=== PATIENT | female | born 1950 | race Caucasian/White ===

== ENCOUNTER 2018-07-12 14:00 | Outpatient (CLI) | payer MEDICARE, OTHER ==
[2018-07-12] MEDS ORDERED: Gadobenate Dimeglumine 529 MG/1 ML (20ML VIAL) ONE (15:17)
--- NOTE | 2018-07-12 15:38 | MRI ---
MR of the abdomen with and without IV contrast INDICATION: Bile duct enlargement TECHNIQUE: Multiplanar multisequence MR images were obtained of the abdomen with and without contrast utilizing MRCP protocol. Contrast: 14 cc of MultiHance was utilized. COMPARISON: None FINDINGS: Liver: No focal hepatic lesion is evident. No area of abnormal enhancement is demonstrated. There is signal dropout on in and out of phase images consistent with changes of fatty infiltration. Gallbladder and biliary system: No gallstones are present. The common bile but measures 6.9 mm which is within normal limits for age. No intrahepatic biliary ductal dilatation is noted. No intraluminal stone is noted. No visible mass is seen near the region of the ampulla. Pancreas: Visualized pancreas is normal-appearing. The main pancreatic duct is normal-appearing. No p eripancreatic edema is noted. Adrenal glands: The adrenal glands are normal appearing. Kidneys: Normal appearing. Spleen: Normal in size and signal intensity. Retroperitoneum: No free fluid or lymphadenopathy is evident. Osseous structures: Bone marrow signal intensity is within normal limits. IMPRESSION: 1. No intrahepatic or extra hepatic biliary ductal dilatation. No intraluminal lesion or stone is dem onstrated. 2. Fatty liver
== END 2018-07-12 14:01 | disposition home or self-care (01) ==
LOC: BICMRI 14:00
PROVIDERS: ATTEND Internal Medicine Gastroenterology
DX: R10.9 Unspecified abdominal pain (principal); R93.89 Abnormal findings on diagnostic imaging of other specified body structures; K83.8 Other specified diseases of biliary tract; K76.0 Fatty (change of) liver, not elsewhere classified
CPT/HCPCS: 74183; 82565; A9577

== ENCOUNTER 2018-09-01 08:23 | Outpatient (CLI) | payer MEDICARE, OTHER ==
--- NOTE | 2018-09-01 09:11 | MMO ---
Bilateral MAMMO Bilat Screen [id number]. CLINICAL HISTORY: Patient is 68 years old and is seen for screening. The patient has no family history of breast cancer. The patient has no personal history of cancer. The patient has a history of bilateral Implants in 2007 and bilateral Implants - they ruptured and so patient had an Explantation. VIEWS: The views performed were: bilateral craniocaudal; bilateral mediolateral oblique; and bilateral Implant displaced with tomosynthesis. FILMS COMPARED: The present examination has been compared to prior imaging studies performed at [facility] on 02/09/2008 and 06/23/2014, and at [facility] on 06/16/2001. MAMMOGRAM FINDINGS: There are scattered fibroglandular densities. Normal implants are present. There are no suspicious masses, suspicious calcifications, or new areas of architectural distortion. IMPRESSION: THERE IS NO MAMMOGRAPHIC EVIDENCE OF MALIGNANCY. A ROUTINE FOLLOW-UP MAMMOGRAM IN 1 YEAR IS RECOMMENDED. THE RESULTS OF THIS EXAM WERE SENT TO THE PATIENT. ACR BI-RADS Category 2 - Benign finding MAMMOGRAPHY NOTE: 1. A negative mammogram report should not delay a biopsy if a dominant of clinically suspicious mass is present. 2. Approximately 10% to 15% of breast cancers are not detected by mammography. 3. Adenosis and dense breasts may obscure an underlying neoplasm.
--- NOTE | 2018-09-01 09:32 | BD ---
EXAM: Bone densitometry using DEXA HISTORY: 68 yo female. Screening for postmenopausal osteoporosis FINDINGS: L1--bone mineral density 0.743 g/sq cm; T score -2.2 ; Z score -0.4 L2--bone mineral density 0.847 g/sq cm; T score -1.6 ; Z score 0.4 L3--bone mineral density 0.858 g/sq cm; T score -2.1 ; Z score 0.1 L4--bone mineral density 0.700 g/sq cm; T score -3.3 ; Z score -1.1 Total L1-L4--bone mineral density 0.786 g/sq cm; T score -2.4 ; Z score -0.3 Left femoral neck--bone mineral density0.607; T score -2.2 ; Z score -0.4 Total proximal left femur--bone mineral density 0.866; T score -0.6 ; Z score 0.8 The 10 year fracture risk for a major osteoporotic fracture is 12% and for a hip fracture is 2.5%. IMPRESSION: Osteopenia
== END 2018-09-01 08:24 | disposition home or self-care (01) ==
LOC: BICMAMMO 08:23
PROVIDERS: ATTEND Physician Assistant
DX: Z12.31 Encounter for screening mammogram for malignant neoplasm of breast (principal); Z13.820 Encounter for screening for osteoporosis; M85.89 Other specified disorders of bone density and structure, multiple sites; Z98.82 Breast implant status
CPT/HCPCS: 77063; 77067; 77080

== ENCOUNTER 2019-06-09 09:01 | Outpatient (CLI) | payer MEDICARE, OTHER ==
--- NOTE | 2019-06-09 10:06 | MRI ---
MR CERVICAL SPINE WITHOUT CONTRAST INDICATION: History of closed fracture of the cervical spine with neck pain for 5 to 6 years. No hist ory of recent trauma or cervical spinal surgery. TECHNIQUE: Multiplanar multisequence MR images were obtained of the cervical spine without contrast. COMPARISON: None FINDINGS: Posterior fossa: Within normal limits. Bone marrow signal intensity: No acute fracture is evident. There is mild Modic endplate degenerative change seen at C7-T1. Spinal alignment: Normal. Craniocervical junction: Normal appearing. Prevertebral and perivertebral soft tissues: Visualized soft tissues appear within normal limits. Vertebral levels: C2-C3: There is severe left facet osteoarthrosis. There is no appreciable central canal or neural for aminal narrowing. C3-4: There is a broad-based bulge with a superimposed central protrusion causing mild to moderate ef facement of ventral spinal cord without cord signal abnormality. There is no appreciable neural foraminal narrowing. There is mild to moderate right and mild left facet joint degenerative change. C4-5: There is a broad-based disc bulge, asymmetric to the left with facet hypertrophy inducing mild to moderate central canal narrowing mild ventral effacement of the spinal cord. C5-C6: There is a broad-based disc osteophyte complex and facet osteoarthrosis inducing mild left jessica ral foraminal narrowing and mild central canal narrowing. C6-C7: There is a broad-based disc osteophyte complex and uncovertebral hypertrophy inducing mild lef t neural foraminal narrowing and mild central canal narrowing C7-T1: There is a broad-based disc osteophyte complex with facet hypertrophy inducing mild neural for aminal narrowing, right greater than left. There is mild central canal narrowing. IMPRESSION: 1. Moderate central canal narrowing at C3-4 due to a broad-based bulge with a superimposed central di sc protrusion causing mild to moderate effacement of ventral spinal cord without cord signal abnormality. 2. Mild to moderate central canal narrowing involving the C4-5 level with mild ventral effacement spi nal cord. 3. Mild left neural foraminal narrowing and mild central canal narrowing at C5-6. 4. Mild central canal narrowing mild left neural foraminal narrowing at C6-7. 5. Mild central canal narrowing and mild bilateral neural foraminal narrowing, right greater than lef t at C7-T1.
== END 2019-06-09 09:02 | disposition home or self-care (01) ==
LOC: BICMRI 09:01
PROVIDERS: ATTEND Physician Assistant
DX: S12.9XXA Fracture of neck, unspecified, initial encounter (principal); M48.02 Spinal stenosis, cervical region; M48.03 Spinal stenosis, cervicothoracic region; M50.21 Other cervical disc displacement, high cervical region; M51.9 Unspecified thoracic, thoracolumbar and lumbosacral intervertebral disc disorder
CPT/HCPCS: 72141

== ENCOUNTER 2019-08-08 10:36 | Outpatient (CLI) | payer MEDICARE ==
--- NOTE | 2019-08-08 12:45 | RAD ---
4 VIEWS CERVICAL SPINE: Date: 08/08/2019 COMPARISON: None. HISTORY: Spinal stenosis with cervical radiculopathy. FINDINGS: AP, lateral, flexion, and extension views of cervical spine performed. Moderate degenerative changes are seen throughout the cervical spine with intervertebral disc space narrowing and osteophyte format ion. The vertebral bodies demonstrate normal height without fracture or subluxation. Alignment is simba ntained with flexion and extension. No prevertebral soft tissue swelling is seen. IMPRESSION: Moderate degenerative changes of the cervical spine with unchanged alignment with bending. POS: FELICIA
== END 2019-08-08 10:37 | disposition home or self-care (01) ==
LOC: BICRAD 10:36
PROVIDERS: ATTEND Neurological Surgery
DX: M47.22 Other spondylosis with radiculopathy, cervical region (principal)
CPT/HCPCS: 72050

== ENCOUNTER 2019-10-01 16:03 | Emergency (ER) | payer MEDICARE ==
[~2019-10-01 16:03] MED LIST: Iopamidol-370 76% 500 ML 1 ML ONE
[2019-10-01 16:32] LABS: #Basophils 0.1 thou/uL (0.0-0.2); #Eosinphils 0.1 thou/uL (0.0-0.7); #Lymphocytes 1.9 thou/uL (1.20-3.40); #Monocytes 0.6 thou/uL (0.11-0.59); #Neutrophils 3.4 thou/uL (1.40-6.50); %Basophils 1.6 % (0.0-1.0); %Eosinophils 1.6 % (0.0-10.0); %Lymphocytes 31.4 % (21.0-51.0); %Monocytes 10.1 % (0.0-10.0); %Neutrophils 55.3 % (42.0-75.0); Hemoglobin 13.6 g/dL (12.0-16.0); Mean Corpuscular HGB CONC 33.5 g/dL (32.0-36.0); Mean Corpuscular Hemoglobin 32.7 pg (27.0-31.0); Mean Corpuscular Volume 97.4 fL (78.0-98.0); Mean Platelet Volume 8.4 fL (7.4-10.4); Platelet Count 237 thou/uL (130-400); RBC Distribution Width 11.8 % (11.5-14.5); Red Blood Cell (RBC) Count 4.15 mill/uL (4.20-5.40); White Blood Cell (WBC) Count 6.1 thou/uL (4.8-10.8)
[2019-10-01 16:39] LABS: INR-International Normal Ratio 0.9; Prothrombin Time 12.4 sec (12.0-14.7)
--- NOTE | 2019-10-01 16:41 | CT ---
CT OF THE HEAD WITHOUT CONTRAST: 10/01/19 COMPARISON: 03/10/19. HISTORY: Altered mental status. TECHNIQUE: Axial CT imaging at 5 mm intervals from vertex through skull base without contrast. FINDINGS: The imaged paranasal sinuses and mastoid air cells are well aerated. There is no displaced calvarial fracture, intracranial hemorrhage, midline shift, or mass effect. IMPRESSION: No acute findings. Results called to Dr. Carver at 4:27 p.m., 10/01/19. Code CR
[2019-10-01 16:42] LABS: PTT 21.9 sec (22.9-36.1)
[2019-10-01 16:52] LABS: ALT (SGPT) 11 U/L (8-55); AST (SGOT) 22 U/L (5-34); Alkaline Phosphatase 118 U/L (40-110); Anion Gap 18 mmol/L (10-20); BUN (Urea Nitrogen) 11 mg/dL (9.8-20.1); Bilirubin, Total 0.4 mg/dL (0.2-1.2); Calc. Creatinine Clearance 0 mL/min (70-130); Calcium 8.7 mg/dL (7.8-10.44); Carbon Dioxide 20 mmol/L (23-31); Chloride 107 mmol/L (98-107); Estimated GFR-MDRD 83; Globulin 2.6 g/dL (2.4-3.5); Glucose 94 mg/dL (80-115); Magnesium 1.9 mg/dL (1.6-2.6); Potassium 3.7 mmol/L (3.5-5.1); Protein, Total 6.6 g/dL (6.0-8.3); Sodium 141 mmol/L (136-145)
--- NOTE | 2019-10-01 17:07 | CT ---
CT ANGIOGRAM OF THE HEAD AND NECK: 10/01/19 COMPARISON: None. HISTORY: Encephalopathy. TECHNIQUE: Axial CT imaging at 1.25 mm intervals through the head and neck with IV contrast using CT angiogram p rotocol with coronal and sagittal 3D reformatted imaging. FINDINGS: Bilateral upper lobe emphysematous changes are present. The imaged paranasal sinuses and mastoid air cells are grossly unremarkable. The retroantral fat, parapharyngeal fat, parotid glands, submandibular glands, tonsillar pillars, epi glottic and pre-epiglottic fat, hyoid bone, thyroid cartilage, cricoid cartilage, and thyroid gland g rossly unremarkable. Origin of the innominate artery, right subclavian artery, right common carotid artery, left subclavia n artery and left common carotid artery demonstrate no hemodynamically significant stenosis. No steno sis is seen at the origin of either vertebral artery. Bilateral vertebral arteries are patent. There is scattered atherosclerotic calcification involving t he mid and distal right CCA. On the basis of NASCET criteria, there is no hemodynamically significant stenosis involving the common carotid artery or internal carotid artery on either side. The basilar artery and its branches are patent with no saccular aneurysm, vascular occlusion or high grade stenosis involving the posterior circulation. There is atherosclerotic calcification of the cavernous carotid artery on the left. The MCA bifurcati on, the M1 segment, the A1 segment, the anterior communicating artery, the distal CORBIN branches and th e distal MCA branches appear grossly unremarkable bilaterally. No saccular aneurysm, high grade steno sis or vascular occlusion is seen involving the anterior circulation. There is no neck lymphadenopathy. There is extensive cervical spine degenerative change with disc space narrowing and osteophyte format ion at C4-5, C5-6, C6-7 and C7-T1. There is multilevel bilateral facet and uncovertebral osteophyte f ormation within the cervical spine as well. IMPRESSION: 1. No hemodynamically significant stenosis on the basis of NASCET criteria involving the arteria l structures of the neck. 2. No saccular aneurysm, high grade stenosis or central vascular occlusion intracranially. Results called to Dr. Carver at 4:35 p.m., 10/01/19. Code CR
[2019-10-01 17:15] LABS: Acetaminophen Less than 6.0 mcg/mL (10.0-30.0); Alcohol 284 mg/dL (Less than 10); Salicylate Less than 8.0 mg/dL (15.0-30.0)
--- NOTE | 2019-10-01 17:41 | RAD ---
EXAM: CHEST ONE VIEW: 10/01/19 HISTORY: Altered mental status. COMPARISON: 07/21/08. FINDINGS: minimal bullous emphysema changes in the apices, right greater than left. Minimal increased linear an d interstitial markings bilaterally having more of a chronic appearance. No confluent pneumonia, ove rt edema or pleural effusion. IMPRESSION: Evidence for chronic lung change bilaterally with some minimal biapical emphysema greater on the righ t side. No significant acute process. POS: RRE
== END 2019-10-01 20:25 | disposition home or self-care (01) ==
LOC: ERS 16:03
DX: F10.129 Alcohol abuse with intoxication, unspecified (principal); K21.9 Gastro-esophageal reflux disease without esophagitis; E78.5 Hyperlipidemia, unspecified; E78.00 Pure hypercholesterolemia, unspecified; I10 Essential (primary) hypertension; J44.9 Chronic obstructive pulmonary disease, unspecified; F41.9 Anxiety disorder, unspecified; Y90.8 Blood alcohol level of 240 mg/100 ml or more; Z87.891 Personal history of nicotine dependence
CPT/HCPCS: 36416; 70450; 70496; 70498; 71045; 80053; 80307; 82140; 83735; 84443; 84484; 85025; 85610; 85730; 93005; Q9967

== ENCOUNTER 2019-12-27 07:22 | Outpatient (CLI) | payer MEDICARE, OTHER ==
[2019-12-27 14:11] LABS: Hemoglobin 13.5 g/dL (12.0-16.0); Mean Corpuscular HGB CONC 33.7 g/dL (32.0-36.0); Mean Corpuscular Hemoglobin 32.7 pg (27.0-31.0); Mean Corpuscular Volume 96.9 fL (78.0-98.0); Mean Platelet Volume 10.1 fL (7.4-10.4); Platelet Count 207 thou/uL (130-400); RBC Distribution Width 11.7 % (11.5-14.5); Red Blood Cell (RBC) Count 4.14 mill/uL (4.20-5.40)
[2019-12-27 14:20] LABS: INR-International Normal Ratio 0.9; Prothrombin Time 12.4 sec (12.0-14.7)
[2019-12-27 14:21] LABS: PTT 29.1 sec (22.9-36.1)
[2019-12-28 11:54] LABS: SARS-CoV-2 MS2 Positive; SARS-CoV-2 N Gene Negative; SARS-CoV-2 S Gene Negative; SARS-CoV-2 by NAA Not Detected (NotDetected); SARS-CoV-2 orf1ab Negative
== END 2019-12-27 07:23 | disposition home or self-care (01) ==
LOC: LABBT 07:22
PROVIDERS: ATTEND Neurological Surgery
DX: Z01.812 Encounter for preprocedural laboratory examination (principal); Z20.828 Contact with and (suspected) exposure to other viral communicable diseases; M50.00 Cervical disc disorder with myelopathy, unspecified cervical region
CPT/HCPCS: 85027; 85610; 85730; U0003; 87635

== ENCOUNTER 2019-12-30 05:41 | Day surgery (SDC) | payer MEDICARE ==
[2019-12-28 14:58] VITALS: BMI 25.7
--- NOTE | 2019-12-29 16:47 | HP ---
REASON FOR HISTORY AND PHYSICAL: Surgery on 12/30/2019. Case #[id number]. HISTORY OF PRESENT ILLNESS: Ms. Merino is a 69-year-old female with a chief complaint of worsening neck pain for the past two years. She states the pain comes and goes. She cannot contribute what caused the pain. One day, she was working in the garden and had a horrific pain the following day. Pain radiates into her right shoulder. Saw Dr. Gamez over a year ago for cervical injections and gave her about six months of relief. She denies any fine motor skills with her fingers. She is able to distinguish between soft and rough. Denies gait, bladder or bowel dysfunction. REVIEW OF SYSTEMS: CONSTITUTIONAL: Denies fever, chills. ENT: Denies change in vision or hearing. CARDIAC: Denies chest pain, shortness of breath, diaphoresis. PULMONARY: Denies shortness of breath, cough, or hemoptysis. GI: Denies abdominal pain, nausea, vomiting, diarrhea, change in stool formation and consistency. : Denies trouble with urination, frequency of urination, bloody urine. SKIN: Denies skin rash, bruising, bleeding, skin masses. MUSCULOSKELETAL: As per history of present illness. NEUROLOGICAL: As per history of present illness. PSYCHOLOGICAL: Denies anxiety, depression, or behavior changes. MEDICAL HISTORY: Hyperlipidemia, hypothyroidism, anxiety, alcoholism, hypertension, COPD, chronic neck pain, muscle spasms. SURGICAL HISTORY: Colonoscopy, noncancerous removal, breast implant and removal and redone. FAMILY HISTORY: Father , diagnosed with heart disease. Mother , diagnosed with heart disease. SOCIAL HISTORY: Former smoker, quit in 2011, used to smoke one pack per day. Alcohol, drinks liquor, mixed drinks wine. Denies illicit drug use. MEDICATIONS: 1. Amlodipine 5 mg. 2. Bevespi Aerosphere 9/4.8 mcg. 3. Atorvastatin 10 mg. 4. Tramadol 50 mg. 5. Hydroxyzine 25 mg. 6. Cyclobenzaprine 10 mg. 7. Gabapentin 300 mg. 8. Ibuprofen 800 mg. 9. Alprazolam 0.5 mg. ALLERGIES: CODEINE, VOMITING. PHYSICAL EXAMINATION: VITALS: Weight 125, height 5 feet 6 inches, BMI 23.4. HEENT: Pupils are equal. Extraocular movements are intact. NECK: Soft, supple. No masses are noted. Range of motion is painful. NEUROLOGIC: Awake, alert, and oriented x3. Memory, attention, fund of knowledge normal. Cranial nerves grossly intact. Upper extremity, she has good strength in her deltoids, biceps, triceps, wrist extension, finger extensions, and finger intrinsics. Sensation is equal bilaterally. [id number] normal with normal gait. Neck range of motion on and off with stiff R1 radiating to the right trapezius muscle and shoulder. ASSESSMENT: Cervical HNP with myelopathy. IMAGING: C-spine MRI; there is an HNP at C3-4 causing canal stenosis. Cervical x-ray, flexion and extension stable. PLAN: 1. ACDF C3-4, C4-5. 2. Clearance with Anesthesia and Lashell Schneider. 2. Preop lab: CBC, PT, PTT, COVID-19. INFORMED CONSENT: We have discussed the indications, risks, benefits, alternatives, and expected results from surgery. The risks discussed included, but were not limited to, bleeding, infection, CSF leak, nerve damage, weakness, swallowing trouble, feeding tube placement, tracheal injury, esophageal injury, vocal cord injury, spinal cord injury, incontinence, paralysis, ventilator dependency, wheelchair dependency, stroke, loss of vision, carotid artery injury, jugular vein injury, hardware misplacement, cardiopulmonary complications of anesthesia or . Long-term complications discussed included, but were not limited to, hardware failure and degeneration of the surrounding disk. The patient states they understand the risks and is willing to proceed. Job ID: [id number] [facility]
[2019-12-30] MEDS ORDERED: Thrombin 5000 UNITS/5 ML VIAL ONE (06:10)
[2019-12-30] MEDS ORDERED: HYDROmorphone 0.5 MG/0.5 ML SYRINGE ONE (06:35)
[2019-12-30] MEDS ORDERED: Fentanyl 100 MCG/2 ML VIAL ONE ×2 (06:48→07:42)
[2019-12-30 06:58] LABS: Anion Gap 14 mmol/L (10-20); BUN (Urea Nitrogen) 11 mg/dL (9.8-20.1); Calc. Creatinine Clearance 76 mL/min (70-130); Carbon Dioxide 23 mmol/L (23-31); Chloride 107 mmol/L (98-107); Estimated GFR-MDRD 73; Glucose 98 mg/dL (80-115); Potassium 4.4 mmol/L (3.5-5.1); Sodium 140 mmol/L (136-145)
[2019-12-30] MEDS ORDERED: Acetaminophen 650 MG Suppository PR PRN (10:02)
[2019-12-30] MEDS ORDERED: traMADol HCl 50 MG TAB PO PRN ×2 (10:02)
[2019-12-30] MEDS ORDERED: diphenhydrAMINE 50 MG/ML VIAL IVP PRN (10:02)
[2019-12-30] MEDS ORDERED: Promethazine HCl 25 MG/ML VIAL IM PRN (10:02)
[2019-12-30] MEDS ORDERED: Morphine 2 MG/ML VIAL SLOW IVP PRN (10:02)
[2019-12-30] MEDS ORDERED: diphenhydrAMINE 25 MG CAP PO PRN (10:02)
[2019-12-30] MEDS ORDERED: Acetaminophen 325 MG TAB PO PRN (10:02)
[2019-12-30] MEDS ORDERED: tiZANidine HCl 4 MG TAB PO PRN (10:02)
[2019-12-30] MEDS ORDERED: Sodium Chloride 0.9% 1,000 ML IV SCH (10:15)
[2019-12-30] MEDS ORDERED: Dexamethasone 20 MG/5 ML VIAL ONE (10:59)
[2019-12-30] MEDS ORDERED: EPHEDRINE 25 MG/5 ML SYRINGE ONE (10:59)
[2019-12-30] MEDS ORDERED: PHENYLEPHRINE-NS 100 MCG/ML 10 ML SYRINGE ONE (10:59)
[2019-12-30] MEDS ORDERED: Glycopyrrolate 0.2 MG/ML 5 ML SYRINGE ONE (10:59)
[2019-12-30] MEDS ORDERED: PROPOFOL 200 MG/20 ML VIAL ONE (10:59)
[2019-12-30] MEDS ORDERED: Lidocaine 1% PF 5 ML VIAL ONE (10:59)
[2019-12-30] MEDS ORDERED: Ketorolac Tromethamine 30 MG/ML VIAL ONE (10:59)
[2019-12-30] MEDS ORDERED: Ondansetron PF 4 MG/2 ML Vial ONE (10:59)
[2019-12-30] MEDS ORDERED: Rocuronium Bromide 10 MG/ML (10ML VIAL) ONE (10:59)
--- NOTE | 2019-12-30 11:10 | OP ---
DATE OF PROCEDURE: 12/30/2019 CW OPERATOR: None. PREOPERATIVE INDICATION: Treat pain and prevent neurological deterioration. PREOPERATIVE DIAGNOSIS: Cervical intervertebral disk disease at C3-C4 and C4-C5 with both myelopathy and radiculopathy. POSTOPERATIVE DIAGNOSIS: Cervical intervertebral disk disease at C3-C4 and C4-C5 with both myelopathy and radiculopathy. PROCEDURES PERFORMED: 1. Anterior cervical diskectomy, C3-C4 and C4-C5. 2. Intervertebral arthrodesis, C3-C4 and C4-C5. 3. Placement of intervertebral biomechanical device, C3-C4 and C4-C5 (separate from plate). 4. Anterior cervical plating at C3, C4, and C5 (separate from interbody device). 5. Local morselized autograft, morselized allograft. 6. Operative microscope. PREOPERATIVE MEDICATIONS: Ancef 2 g IV. DRAIN NUMBER: Zero. DRAIN TYPE: None. DESCRIPTION OF PROCEDURE: The patient was brought to the operating room. General endotracheal anesthesia was induced. The patient was positioned supine and her head supported by a donut-shaped headrest. A lateral fluoro radiograph was used to plan our incision. The right side of the neck was sterilely prepped and draped. We opened with a 10 blade knife and we controlled bleeding with bipolar cautery. We dissected sharply to the platysma. We cut this muscle inline with our incision. We continued our dissection medial to the sternocleidomastoid and lateral to the trachea and esophagus. We arrived to the prevertebral space. We placed a marker at C3-C4 and took a lateral fluoro radiograph to confirm the levels upon which we were operating. We then elevated the longus colli muscles off the anterior surface of C3, C4, and C5, and placed a self-retaining retractor beneath them. We did place distraction pins at C3 and C5 and distracted across both of the intervening interspaces. We incised those interspaces with a 15 blade knife. We removed disk contents using curettes and rongeurs. The operative microscope was brought into the field. Under microscopic magnification using microsurgical techniques, we removed the remainder of the intervertebral disk. We accessed the ventral epidural space with a micro curette and we used Kerrison rongeurs to remove posterior osteophytes and posterior longitudinal ligament across the entire interspace from one neural foramen all the way to the other ensuring both nerve roots and the canal were decompressed. This was completed at C3-C4 and again at C4-C5. We turned our attention to arthrodesis. Using curettes, we prepared the endplates for grafting. With a bone rasp, we measured the height of the interspace to 7 mm at C3-C4 and 6 mm at C4-C5. The appropriately-sized PEEK intervertebral grafts were brought into the field. Osteophytes removed during our decompression were cleaned of soft tissue attachments, morcellized and added to demineralized bone matrix as our fusion substrate. The substrate was packed in the center of the PEEK grafts and those grafts were advanced into the respective interspaces under radiographic guidance to the appropriate depth. We removed the operating microscope. A 31 mm anterior cervical plate was brought into the field. We drilled pilot boat deckhand holes through the plate into the vertebral bodies at C3, C4, and C5, and we affixed the plate using 14 mm screws. Fixed angle screws were used at C5, and variable angle screws at C3 and C4. We engaged the locking mechanism over each of the 6 screws. AP and lateral fluoro radiographs confirmed adequate positioning of our instrumentation. We irrigated with bacitracin irrigation. We closed the wound in anatomical layers. We applied a sterile dressing. This was a clean case, no contamination. Job ID: [id number]
[2019-12-30] MEDS ORDERED: CEFAZOLIN 1 GM VIAL ONE (11:36)
[2019-12-30] MEDS ORDERED: Scopolamine 1.5 mg/72 hour Patch TD SCH (15:00)
[2019-12-30] MEDS ORDERED: CEFAZOLIN 2 GM in Premix Bag 1 BAG IVPB SCH (15:00)
== END 2019-12-30 15:10 | disposition home or self-care (01) ==
LOC: SDC 05:41
PROVIDERS: ATTEND Neurological Surgery
PROC: 0RG20A0 Fusion of 2 or more Cervical Vertebral Joints with Interbody Fusion Device, Anterior Approach, Anterior Column, Open Approach (ICD-10-PCS; principal; 2019-12-30)
PROC: 0RT30ZZ Resection of Cervical Vertebral Disc, Open Approach (ICD-10-PCS; 2019-12-30)
DX: M50.01 Cervical disc disorder with myelopathy, high cervical region (principal); M50.11 Cervical disc disorder with radiculopathy, high cervical region; M48.02 Spinal stenosis, cervical region; E78.5 Hyperlipidemia, unspecified; E03.9 Hypothyroidism, unspecified; F41.9 Anxiety disorder, unspecified; J44.9 Chronic obstructive pulmonary disease, unspecified; I10 Essential (primary) hypertension; F10.20 Alcohol dependence, uncomplicated; Z87.891 Personal history of nicotine dependence; Z79.899 Other long term (current) drug therapy; Z88.5 Allergy status to narcotic agent
CPT/HCPCS: 20930; 20936; 22551; 22552; 22853 ×2; 76000; 80048; C1713 ×4; C1776; J0690; J1100; J1170; J1885; J2405; J2704; J3010; J3490

== ENCOUNTER 2020-04-09 14:33 | Outpatient (CLI) | payer MEDICARE ==
--- NOTE | 2020-04-09 15:29 | RAD ---
EXAM: XR Cerv Sp Ap Lat STANDARD DATE: 04/09/2020 2:38 PM INDICATION: History of herniated nucleus pulposus of the cervical spinal region COMPARISON: Cervical spinal radiograph dated August 08, 2019 FINDING: Since the comparison examination there has been interval performance of an ACDF spanning C3 -C5. Multilevel disc degenerative and facet osteoarthritic changes are stable. Instrumentation projects in the expected position without gross evidence of complication. Lung apices are clear. Late ral masses are symmetric. IMPRESSION:Interval postoperative change of the cervical spine. Stable severe cervical spondylosis.
== END 2020-04-09 14:34 | disposition home or self-care (01) ==
LOC: BICRAD 14:33
PROVIDERS: ATTEND Surgery
DX: M50.20 Other cervical disc displacement, unspecified cervical region (principal); M47.812 Spondylosis without myelopathy or radiculopathy, cervical region; Z98.1 Arthrodesis status
CPT/HCPCS: 72040

== ENCOUNTER 2023-02-02 09:30 | Outpatient (CLI) | payer MEDICARE | END 2023-02-02 09:31 | disposition home or self-care (01) | LOC: BICMAMMO 09:30 | PROVIDERS: ATTEND Physician Assistant | DX: Z12.31 Encounter for screening mammogram for malignant neoplasm of breast (principal); Z12.2 Encounter for screening for malignant neoplasm of respiratory organs; Z87.891 Personal history of nicotine dependence; R91.1 Solitary pulmonary nodule; J98.11 Atelectasis; Z98.82 Breast implant status | CPT/HCPCS: 71271; 77063; 77067 ==